=== PATIENT | male | born 1950 | race Caucasian/White ===

== ENCOUNTER 2016-04-15 04:50 | Inpatient (IN) | payer OTHER ==
[~2016-04-15] VITALS: Ht 188 cm; Wt 141.5 kg
[~2016-04-15 04:50] MED LIST: ALLEGRA ALLERG180 MG PO; AMOXICILLIN; ASPIRIN325 MG PO; CENTRUM SILVER1 EAC3 PO; CRESTOR40 MG PO; DIFLUCAN150 MG PO; DIOVAN160 MG PO; LASIX20 MG PO; METOPROLOL SUCC50 MG PO; NEXIUM40 MG PO; NITROSTAT0.4 MG SL; OMEGA 3 500 SO1 EACH PO; PAXIL CR37.5 MG PO; PLAVIX75 MG PO; TOPROL XL25 MG PO; VITAMIN D2000 UNI1 PO; VITAMIN D31000 UNIT PO
[2016-04-15 07:00] LABS: POINT-OF-CARE METER ID UU14174212
[2016-04-15 07:34] VITALS: BP 133/66
[2016-04-15 09:06] LABS: METH RESISTANT S AUREUS PCR NEGATIVE (NEGATIVE)
[2016-04-15 09:09] LABS: PROBE CHECK PASS; SPECIMEN PROCESSING CONTROL PASS
[2016-04-15 10:37] LABS: POINT-OF-CARE METER ID UU13113675
[2016-04-15 12:26] VITALS: BP 177/88
[2016-04-15 15:17] VITALS: BP 165/77
[2016-04-15 19:19] VITALS: BP 170/80
[2016-04-15 21:06] VITALS: BP 159/80
[2016-04-15 23:28] VITALS: BP 159/79
[2016-04-16 04:05] VITALS: BP 148/77
[2016-04-16 07:41] LABS: ANION GAP 10 MEQ/L (2-14); CHLORIDE 104 MEQ/L (99-109); GFR ESTIMATE (CALCULATED) > 59 mL/min/; GLUCOSE 94 mg/dL (70-99); SAMPLE HEMOLYSIS CHECK 0; SAMPLE ICTERIC CHECK 0; SAMPLE LIPEMIA CHECK 0; SODIUM 138 MEQ/L (136-147); UREA NITROGEN (BUN) 14 mg/dL (9-23)
[2016-04-16] MEDS ORDERED: HYDROCODON-ACE1 EAC7 PO (08:33)
[2016-04-16 08:35] LABS: HEMATOCRIT 40.8 % (38.0-50.0); MCH 30.9 PG (29.0-34.0); MCHC 34.1 G/DL (30.0-36.0); MCV 90.7 FL (86-99); MEAN PLAT.VOLUME 11.1 uM^3 (9.0-12.4); PLATELET COUNT 207 K/uL (156-360); RBC DIS.WIDTH-CV 13.6 % (11.8-14.6); RBC DIS.WIDTH-SD 45.2 % (39-53)
[2016-04-16 08:42] VITALS: BP 146/71
== END 2016-04-16 10:04 | disposition home or self-care (01) | DRG 621 ==
LOC: 2SOUTH 04:50 → 2EASTP 11:58 → 2SOUTH 15:20 → 2EASTP 04-16 10:04
PROVIDERS: Surgery
PROC: 0DB64Z3 Excision of Stomach, Percutaneous Endoscopic Approach, Vertical (ICD-10-PCS; principal; 2016-04-15)
PROC: 5A09357 Assistance with Respiratory Ventilation, Less than 24 Consecutive Hours, Continuous Positive Airway Pressure (ICD-10-PCS; principal; 2016-04-15)
DX: E66.01 Morbid (severe) obesity due to excess calories (principal); G47.30 Sleep apnea, unspecified; I25.10 Atherosclerotic heart disease of native coronary artery without angina pectoris; K21.9 Gastro-esophageal reflux disease without esophagitis; E11.9 Type 2 diabetes mellitus without complications; E55.9 Vitamin D deficiency, unspecified; E78.5 Hyperlipidemia, unspecified; M19.90 Unspecified osteoarthritis, unspecified site; F32.9 Major depressive disorder, single episode, unspecified; Z68.41 Body mass index [BMI] 40.0-44.9, adult
CPT/HCPCS: 80048; 82948; 83735; 84100; 85027; 87641; J0330; J0690; J1170; J1644; J1650; J1815; J2250; J2270; J2405; J2550; J2710; J3010; J3480; J7120; S0020